=== PATIENT | female | born 1960 | race Caucasian/White ===

== ENCOUNTER 2017-05-15 10:27 | Emergency (ER) | payer MEDICARE, MEDICAID ==
[2017-05-15 10:36] VITALS: BP 153/64
--- NOTE | 2017-05-15 10:44 | UC ---
Respiratory Complaint HPI - HPI Summary HPI Summary: 56 year old female presents with complains of copd exacerbation. - History of Current Complaint Chief Complaint: UCRespiratory Stated Complaint: ST,COUGH,BREATHING Time Seen by Provider: 05/15/17 10:44 Hx Obtained From: Patient Onset/Duration: Sudden Onset Severity Initially: Moderate Severity Currently: Moderate Character: Cough: Nonproductive Alleviating Factors: Bronchodilator Associated Signs And Symptoms: Positive: Dyspnea, Wheezing - Allergies/Home Medications Allergies/Adverse Reactions: Allergies Allergy/AdvReac Type Severity Reaction Status Date / Time No Known Allergies Allergy Verified 05/15/17 10:36 Home Medications: Home Medications Albuterol HFA INHALER* [Ventolin HFA Inhaler*] 2 puff INH Q4H PRN 05/15/17 [ History Confirmed 05/15/17] Apremilast (NF) [Otezla (NF)] 30 mg PO DAILY 05/15/17 [History Confirmed ] Cilostazol TAB* [Pletal TAB*] 100 mg PO BID 05/15/17 [History Confirmed 05/15/17 ] Clopidogrel TAB* [Plavix TAB*] 75 mg PO DAILY 05/15/17 [History Confirmed ] Fluticasone-Salmeterol 500-50* [Advair Diskus 500-50*] 1 puff INH BID 05/15/17 [ History Confirmed 05/15/17] Gabapentin CAP(*) [Neurontin 100 mg CAP(*)] 200 mg PO BID 05/15/17 [History Confirmed 05/15/17] Tiotropium Gervais Monohydrate [Spiriva Respimat] 1.25 mcg IN DAILY 05/15/17 [ History Confirmed 05/15/17] oxyCODONE TAB* [Roxycodone TAB 5 mg*] 20 mg PO TID PRN 05/15/17 [History Confirmed 05/15/17] PMH/Surg Hx/FS Hx/Imm Hx Previously Healthy: Yes - Surgical History Surgical History: Yes Surgery Procedure, Year, and Place: Bypass to left leg several times. left above knee amputation. Nephroscocopy ? - Social History Alcohol Use: None Substance Use Type: Marijuana Smoking Status (MU): Heavy Every Day Tobacco Smoker Amount Used/How Often: 5 cigs per day Review of Systems Constitutional: Negative Skin: Negative Eyes: Negative ENT: Negative Respiratory: Cough Cardiovascular: Negative Gastrointestinal: Negative Genitourinary: Negative Motor: Negative Neurovascular: Negative Musculoskeletal: Negative Neurological: Negative Psychological: Negative All Other Systems Reviewed And Are Negative: Yes Physical Exam Triage Information Reviewed: Yes Vital Signs: Initial Vital Signs Temp 37.7 C 05/15/17 10:30 Pulse 121 05/15/17 10:30 Resp 26 05/15/17 10:30 BP 153/64 05/15/17 10:30 Pulse Ox 92 05/15/17 10:30 Vital Signs Reviewed: Yes Eye Exam: Normal ENT Exam: Normal Dental Exam: Normal Neck exam: Normal Neck: Positive: 1 Respiratory: Positive: Rhonchi, Wheezing Cardiovascular Exam: Normal Abdominal Exam: Normal Musculoskeletal Exam: Normal Neurological Exam: Normal Psychological Exam: Normal Skin Exam: Normal UC Diagnostic Evaluation - Laboratory O2 Sat by Pulse Oximetry: 92 Respiratory Course/Dx - Differential Dx/Diagnosis Provider Diagnoses: copd exacerbation Discharge - Discharge Plan Condition: Stable Disposition: HOME Prescriptions: Levofloxacin TAB* [Levaquin TAB*] 750 mg PO DAILY #6 tab predniSONE TAB* [Deltasone TAB*] 40 mg PO DAILY #4 tab Patient Education Materials: Emphysema (ED), COPD (Chronic Obstructive Pulmonary Disease) (ED) Referrals: Linda Greenberg MD [Primary Care Provider] -
[2017-05-15] MEDS ORDERED: predniSONE TAB* 20 MG PO ONE (10:48)
[2017-05-15] MEDS ORDERED: Levofloxacin TAB* 250 MG PO ONE (10:49)
[2017-05-15] MEDS ORDERED: Albuterol/Ipratropium NEB.SOL* Albuterol 2.5 MG/Ipratropium 0.5 MG 3 ML INH ONE (10:52)
[2017-05-15] MEDS ORDERED: Albuterol/Ipratropium NEB.SOL* Albuterol 2.5 MG/Ipratropium 0.5 MG 3 ML ONE (10:54)
== END 2017-05-15 11:18 | disposition home or self-care (01) ==
LOC: UCCORT 10:27
DX: J44.1 Chronic obstructive pulmonary disease with (acute) exacerbation (principal); F17.210 Nicotine dependence, cigarettes, uncomplicated; Z79.02 Long term (current) use of antithrombotics/antiplatelets
CPT/HCPCS: 99212; A9270-GY; G0463; J7512

== ENCOUNTER 2019-06-21 08:29 | Emergency (ER) | payer MEDICARE, MEDICAID ==
[2019-06-21] MEDS ORDERED: predniSONE TAB* 20 MG PO ONE (08:43)
[2019-06-21] MEDS ORDERED: Albuterol/Ipratropium NEB.SOL* Albuterol 2.5 MG/Ipratropium 0.5 MG 3 ML INH ONE (08:44)
--- OUTSIDE RECORDS SUMMARY | 2019-06-21 09:20 | XMS REPORT | Continuity of Care Document ---
:1960 Author Organization [facility] Address [address], [place] [id number] Phone Care Team Providers Name Role Phone Solitario Irving Unavailable Unavailable Allergies, Adverse Reactions, Alerts Substance Reaction Status No Known Allergies Active Medications Medication Instructions Dosage Effective Dates Status Comments (start - stop) sulfasalazine 500 mg take 2 tablets BID - Active tablet meloxicam 7.5 mg take 1 tablet by 7.5 MG - Active tablet oral route every day cyclobenzaprine 5 mg take 1 tablet by - Active tablet oral route 1-2 times every day Spiriva Respimat 2.5 inhale 2 puff by 5 MCG - Active mcg/actuation inhalation route solution for every day at the inhalation same time each day Advair Diskus 500 inhale 1 puff by 1.00 puff - Active mcg-50 mcg/dose inhalation route 2 powder for inhalation times every day in the morning and evening approximately 12 hours apart clopidogrel 75 mg take 1 tablet by 75 MG - Active tablet oral route every day cilostazol 100 mg take 1 tablet by 100 MG - Active tablet oral route 2 times every day 1/2 hour before or 2 hours after breakfast and dinner Aspir-81 81 mg take 1 tablet by 81 MG - Active tablet,delayed oral route every release day Otezla 30 mg tablet take 1 tablet by 30 MG - Active oral route 2 times every day approximately 12 hours apart vitamin E 400 unit - Active capsule Super B-50 Complex - Active capsule Vitamin D3 5,000 unit - Active tablet oxycodone 20 mg take 1 tablet by - Active tablet oral route 3 times daily Humira(CF) Pen 40 inject 0.4 40 MG - No Longer mg/0.4 mL milliliter by Active subcutaneous kit subcutaneous route every 2 weeks in the abdomen or thigh (rotate sites) sulfasalazine 500 mg take 2 tablets BID - No Longer tablet Active gabapentin 300 mg take 2 capsule by 600 MG - No Longer capsule oral route 2 times Active every day Tylenol Arthritis take 2 tablet by 1300 MG - No Longer Pain 650 mg oral route every 8 Active tablet,extended hours as needed release swallowing whole with water. Do not break, crush, dissolve and/or chew. 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 Pain in unspecified joint Arthropathic psoriasis, unspecified Psoriasis, unspecified Other buttermaker helper drug therapy Pain in joint Arthropathic psoriasis, unspecified Psoriasis Psoriasis Arthropathic psoriasis, unspecified Anemia Active Blood Clots Active Kidney Stones Active Pneumonia Active Psoriasis Active Rheumatoid Arthritis Active Procedures Procedure Date No information Results Test Name Date and Time Measure Units Reference Range Abnormal Flag Status Comments No information Advance Directives Directive Yes / No Effective Date File Name No information Encounters Encounter Practice Location Reason(s) Diagnoses Date Provider Providers Description For Visit Copied on Encounter Arthritis Arthritis Arthropathic [facility] psoriasis, 2 [facility] Provider: Carmella Weir unspecifiedOth 9 [facility], [address] [facility] er correction [address] [facility] (current) drug [place] [id number] [facility], therapy[address], [place], unspecified [place], [address], [place], [place], [place], [place], [id number], [id number], [id number]. [place]. tel:[phone] tel:[phone] tel:[phone] [phone] [facility] Provider: Eulalia Sandoval MD, [address], [place], [address]. tel:[phone] [facility]thritis [facility] 8- MD Ros[facility]. Carmella Weir 9 [address] [facility], [address], [place], [place], [place], [place], [id number], [id number], [place]. [place] tel:[phone] tel:[phone] Arthritis Arthritis Arthropathic Aug-0 [facility] psoriasis, 1-201 [facility] Provider: Carmella Goldeno 9 [facility], [address] [facility] riasis, [address] [facility], [facility] un[facility] [facility] [address] [facility], [address], [place], drug [place], [address], [place], therapy[place] in [place], [place], [place], [id number], joint [id number], [id number]. [place]. tel:[phone] tel:[phone] tel:[phone] [phone] ring Provider: Eulalia Sandoval MD, [address], [place], [address]. tel:[phone] Arthritis Arthritis [facility] 6-201 MD Rosales. Carmella Weir 9 [address] [facility], [address], [place], [place], [place], [place], [place], [id number], [id number], [place]. [place] tel:[phone] tel:[phone] Arthritis Arthritis Arthropathic May-2 [facility] psoriasis, 0-201 MD Rosales. Provider: Carmella Weir unspecifiedPso 9 [address] [facility], [address] [facility] riasis [facility] [address], [address] [facility], [place], [place], [place], [address], [place], [id number], [place], [place], [id number], [place]. [address]. [place] tel:[phone] tel:[phone] tel:[phone] ring Provider: Eulalia Sandoval MD, [address], [place], [address]. tel:[phone] Arthritis Arthritis PsoriasisArthr Lindy [facility] 1-201 MD Rosales. Provider: Carmella Weir psoriasis, 9 [address] [facility], [address] [facility] unspecified Eliel Nur PA, [address], [address] [facility], [place], [place], [place], [address], [place], [id number], [place], [place], [id number], [place]. [address]. [place] tel:[phone] tel:[phone] tel:[phone] ring Provider: Eulalia Sandoval MD, [address], [place], [address]. tel:[phone] Family History Family Member Diagnosis Age At Onset Father Cancer, pancreas Sister Psoriatic Arthritis Mother Psoriasis Immunizations Vaccine Date Status Comments Influenza, injectable, MDCK, administered Note: approx ; Source : Other Flucelvax Quad 2017-2018Y Provider Payers Payer name Insurance type Covered democrat ID Authorization(s) Medicare [id number] Medicaid MC [id number] Social History Type Description Quantity Date Captured Comments Alcohol Use Details Unknown Caffeine Use Details Unknown Tobacco Use Status Smoking Status Unknown Sex Female Vital Signs Date / Height Weight BMI Pulse Blood Temperature Respiratory Body Head BMI Pulse Inhaled Time: Rate Pressure Rate Surface Circumference percentile Ox Ox Area No information Chief Complaint And Reason For Visit No information Reason For Referral Reason For Referral No information Plan Of Treatment Date Type Action Status Goal Tobacco cessation counseling completed Goal Tobacco cessation counseling completed Goal Tobacco cessation counseling completed Goal Tobacco cessation counseling completed Referral Ordered: ordered HAND X-RAY, 3 VIEWS Right Referral Ordered: ordered HAND X-RAY, 3 VIEWS Left Appointment Noy Farfan BOOKED History Of Present Illness Encounter Date Complaint History Of Present Illness No information Functional Status Date Functional Assessment No information Medications Administered Medication Instructions Dosage Effective Dates (start - stop) Status Comments No information Instructions Date Instruction Additional Information Risks/benefits of medications reviewed Labs ordered to check disease activity. Call if symptoms return Labs ordered to check blood counts, liver and kidney functions to monitor safety of medication. Discussed / Reviewed Labs continue same medication plan call if symptoms worsen Risks/benefits of medications reviewed Risks/benefits of medications discussed, handout given on Humira Call if symptoms return Discussed / Reviewed Labs continue same medication plan call if symptoms worsen
--- OUTSIDE RECORDS SUMMARY | 2019-06-21 09:20 | XMS REPORT | Continuity of Care Document ---
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 Problems Description No Information Available Social History Type Date Description Comments Sex Unknown Cigarette Use Current Cigarette Smoker 1/2 Pack Daily ETOH Use Denies alcohol use Tobacco Use Start: Unknown Patient is a current smoker, smokes every day Smoking Status Reviewed: 05/10/19 Patient is a current smoker, smokes every day Allergies, Adverse Reactions, Alerts Active Allergies Reaction Severity Comments Date Fentanyl 08/26/2015 Tramadol 08/26/2015 Inactive Allergies NKDA 08/11/2014 Medications Active Medications SIG Qnty Indications Ordering Date Provider Laurie si by mouth 30tabs Nicho Ram, 06/27/2017 7.5mg Tablets every day as DO, MPH directed Oxycodone HCL si by mouth 90tabs Nicho Ram, 04/11/2017 20mg every 8 hours as DO, MPH Tablets directed chronic pain patient dx g89.28 and m54.6 Plavix 1 po daily Unknown 75mg Tablets Advair Diskus 2 puffs daily Unknown 500-50mcg/Dose Aerosol Proair HFA si-2 puffs a 1inhaler Unknown 108(90Base) needed mcg/Act Aerosol Otezla daily Unknown 30mg Tablets Super B-Complex Unknown Capsules Vitamin D-3 Unknown 1000Unit Capsules Cilostazol Unknown 100mg Tablets Sulfasalazine Unknown 500mg Tablets Spiriva Handihaler Unknown 18mcg Capsules Immunizations Description No Information Available Vital Signs Date Vital Result Comment 05/10/2019 10:38am BP Systolic 128 mmHg BP Diastolic 74 mmHg Heart Rate 78 /min Respiratory Rate 20 /min Height 67 inches 5'7" Weight 117.00 lb Pain Level 8 Pain at this time. Pain Level With Medicine 7 on average with meds Pain Level Without Medicine 9 without meds BMI (Body Mass Index) 18.3 kg/m2 04/08/2019 10:41am BP Systolic 128 mmHg BP Diastolic 74 mmHg Heart Rate 70 /min Respiratory Rate 20 /min Height 67 inches 5'7" Weight 117.00 lb Pain Level 8 Pain at this time. 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 Office Visit 03/07/2019 9:15a Main Office Nicho Ram G89.28 Other chronic as Of 07/27/13 DO, MPH postprocedural pain G54.6 Phantom limb syndrome with pain M05.9 Rheumatoid arthritis with rheumatoid factor, unspecified M25.552 Pain in left hip M79.605 Pain in left leg 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 Office Visit 02/04/2019 4:15p Main Office Nicho Ram G89.28 Other chronic as Of 07/27/13 DO, MPH postprocedural pain M79.605 Pain in left leg M25.552 Pain in left hip G54.6 Phantom limb syndrome with pain M05.9 Rheumatoid arthritis with rheumatoid factor, unspecified 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 Office Visit 01/02/2019 9:30a Main Office Ram, Nicho, G89.28 Other chronic as Of 07/27/13 DO, MPH postprocedural pain G54.6 Phantom limb syndrome with pain M25.552 Pain in left hip M79.605 Pain in left leg J45.998 Other asthma M05.9 Rheumatoid arthritis with rheumatoid factor, unspecified Z79.891 snf (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 Office Visit 12/03/2018 10:30a Main Office Ram, Nicho, G89.28 Other chronic as Of 07/27/13 DO, MPH postprocedural pain M79.605 Pain in left leg M25.552 Pain in left hip G54.6 Phantom limb syndrome with pain 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 Assessments Date Code Description Provider 05/10/2019 G89.28 Other chronic postprocedural pain Ram, Nicho, DO, MPH 05/10/2019 M79.605 Pain in left leg Ram, Nicho, DO, MPH 05/10/2019 M25.552 Pain in left hip Ram, Nicho, DO, MPH 05/10/2019 G54.6 Phantom limb syndrome with pain Ram, Nicho, DO, MPH 05/10/2019 M05.9 Rheumatoid arthritis with rheumatoid factor, Ram, Nicho, DO, MPH unspecified 05/10/2019 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 Ram, Nicho , DO, MPH 04/08/2019 G89.28 Other chronic postprocedural pain Ram, Nicho, DO, MPH 04/08/2019 G54.6 Phantom limb syndrome with pain Ram, Nicho, DO, MPH 04/08/2019 M05.9 Rheumatoid arthritis with rheumatoid factor, Ram, Nicho, DO, MPH unspecified 04/08/2019 M79.605 Pain in left leg Ram, Nicho, DO, MPH 04/08/2019 M25.552 Pain in left hip Ram, Nicho, DO, MPH 04/08/2019 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 Ram, Nicho , DO, MPH 03/07/2019 G89.28 Other chronic postprocedural pain Ram, Nicho, DO, MPH 03/07/2019 G54.6 Phantom limb syndrome with pain Ram, Nicho, DO, MPH 03/07/2019 M05.9 Rheumatoid arthritis with rheumatoid factor, Ram, Nicho, DO, MPH unspecified 03/07/2019 M25.552 Pain in left hip Ram, Nicho, DO, MPH 03/07/2019 M79.605 Pain in left leg Ram, Nicho, DO, MPH 03/07/2019 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 Ram, Nicho , DO, MPH 02/04/2019 G89.28 Other chronic postprocedural pain Ram, Nicho, DO, MPH 02/04/2019 M79.605 Pain in left leg Ram, Nicho, DO, MPH 02/04/2019 M25.552 Pain in left hip Ram, Nicho, DO, MPH 02/04/2019 G54.6 Phantom limb syndrome with pain Ram, Nicho, DO, MPH 02/04/2019 M05.9 Rheumatoid arthritis with rheumatoid factor, Ram, Nicho, DO, MPH unspecified 02/04/2019 Z79.891 snf (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 Ram, Nicho , DO, MPH 01/02/2019 G89.28 Other chronic postprocedural pain Ram, Nicho, DO, MPH 01/02/2019 G54.6 Phantom limb syndrome with pain Ram, Nicho, DO, MPH 01/02/2019 M25.552 Pain in left hip Ram, Nicho, DO, MPH 01/02/2019 M79.605 Pain in left leg Ram, Nicho, DO, MPH 01/02/2019 J45.998 Other asthma Ram, Nicho, DO, MPH 01/02/2019 M05.9 Rheumatoid arthritis with rheumatoid factor, Ram, Nicho, DO, MPH unspecified 01/02/2019 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 Symptoms and complaints discussed and reviewed today. No significant changes in physical findings. Continue current medical pain management.M79.605 Pain in left legComments:Chronic. Symptoms and complaints discussed and reviewed today. No significant changes in physical findings. Continue current medical pain management.M25.552 Pain in left hipComments:Chronic. Symptoms and complaints discussed and reviewed today. No significant changes in physical findings. Continue current medical pain management.G54.6 Phantom limb syndrome with painComments:Chronic. Symptoms and complaints discussed and reviewed today. No significant changes in physical findings. Continue current opioid pain management.M05.9 Rheumatoid arthritis with rheumatoid factor, unspecifiedComments:Chronic. Symptoms and complaints discussed and reviewed today. No significant changes in physical findings. Continue current medical pain management. Followed by Rheumatology. Will follow in regards to pain management.Z79.891 snf (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New Labs:Urine Drug Screen, Ordered: 05/10/19Comments:Urine drug screen sample taken today to monitor opiate use and to monitor use of illicit substances.Will discuss results at next appointment.The following tests were ordered:6 AM, AMPH, NIDA, YARELI, BUP, CARIS, COCM, ETG, FENT, MCSHSG, OPI, OXY, PCP, TAPEN, XTSY, ZOLP. A urine drug test (UDT) was ordered for this patient and collected on site today. Creatinine has been ordered as well for specimen validity, not for kidney function. Preliminary UDT results are not final and should not be used to determine patient care or plan of treatment. Initially a qualitative immunoassay screen will bedone. Any inconsistent or positive findings will be further tested with a more comprehensive quantitative confirmation LCMS study. It is part of the treatment process of prescribing controlled substances and is considered standard of care.AllComments:Continue current medical pain management; injection therapy, osteopathic manipulation, PT / modalities, and consults as needed to manage chronic pain.Non - opioid pain management discussed and optionsdiscussed.Side effects discussed; anticipatory guidance given. Patient clearly understand and agree with all medical treatments and suggestions. All medicines prescribed are adequate and appropriate for this patient's complaint of pain, medical history, physical, and personal goals.Goals of Treatment are to provide adequate and appropriate multidisciplinary medical pain management to increase/ maintain patient's quality of life and functionality while maintaining satisfactory side effect profile andminimizing assistant terminal manager end-organ damage. Importance of regular nutrition throughout the day discussed.Activity as toleratedContinue with PCP Functional Status Description No Information Available Mental Status Description No Information Available Referrals Description No Information Available
--- OUTSIDE RECORDS SUMMARY | 2019-06-21 09:20 | XMS REPORT | Continuity of Care Document ---
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 Pain in joint Arthropathic psoriasis, unspecified Psoriasis Psoriasis Arthropathic psoriasis, unspecified Anemia Active Blood Clots Active Kidney Stones Active Pneumonia Active Psoriasis Active Rheumatoid Arthritis Active Procedures Procedure Date ROUTINE VENIPUNCTURE COMPLETE CBC W/AUTO DIFF WBC RBC SED RATE, AUTOMATED C-REACTIVE PROTEIN ASSAY OF CREATININE TRANSFERASE (AST) (SGOT) ALANINE AMINO (ALT) (SGPT) ASSAY OF SERUM ALBUMIN OFFICE/OUTPATIENT VISIT, EST THER/PROPH/DIAG INJ, SC/IM Methylprednisolone 80 MG inj Results Test Name Date and Time Measure Units Reference Range Abnormal Flag Status Comments Panel Description: CBC Final WBC 16:08:00 10.1 10*3/uL 3.7-10.1 Final RBC 16:08:00 4.72 10*6/uL 3.50-5.50 Final HGB 16:08:00 15.4 g/dL 12.0-16.0 Final HCT 16:08:00 47.0 % 36.0-48.0 Final MCV 16:08:00 99.6 fL 80.0-100.0 Final MCH 16:08:00 32.7 pg 26.0-34.0 Final MCHC 16:08:00 32.8 g/dL 31.0-37.0 Final RDW 16:08:00 13.4 % 10.0-15.0 Final PLATELETS 16:08:00 467 10*3/uL 150-500 Final MPV 16:08:00 5.5 fL 6.0-10.0 L Final IBAN# 16:08:00 6.92 10*3/uL 2.10-8.00 Final LYM# 16:08:00 1.79 10*3/uL 1.00-5.00 Final MONO# 16:08:00 0.94 10*3/uL 0.10-1.00 Final EOS# 16:08:00 0.4 10*3/uL 0.0-0.5 Final BASO# 16:08:00 0.1 10*3/uL 0.0-0.2 Final IBAN% 16:08:00 68.3 % 50.0-80.0 Final LYM% 16:08:00 17.7 % 25.0-50.0 L Final MONO% 16:08:00 9.2 % 2.0-10.0 Final EOS% 16:08:00 3.5 % 0.0-5.0 Final BASO% 16:08:00 1.3 % 0.0-4.0 Final Panel Description: ESR Final ESR 16:08:00 4 mm/Hr 0-20 Final Panel Description: ALBUMIN Final ALB 16:08:00 3.8 g/dL 3.4-4.4 Final Panel Description: ALT Final ALT 16:08:00 25 U/L 30-65 L Final Panel Description: AST Final AST 16:08:00 25 U/L 15-37 Final Panel Description: CREATININE Final CREATININE 16:08:00 0.9 mg/dL 0.6-1.2 Final eGFR 16:08:00 >60 mL/min/1.73m Final Panel Description: CRP Final CRP 16:08:00 <0.2 mg/dL 0.0-1.0 Final Advance Directives Directive Yes / No Effective Date File Name No information Encounters Encounter Practice Location Reason(s) Diagnoses Date Provider Providers Description For Visit Copied on Encounter OFFICE/OUTPA Arthritis Arthritis Psoriatic [facility]ropathic [facility] psoriasis, RIP TAILER C Provider: ELLI Weir (chief unspecifiedOth [address] [facility], 5[address] PLLC complaint) er retirement [address] El[address] Andrew (current) drug [place] [address] [facility], therapyPain in [address]kw[address], [place], [place], [address], [place], [place], [place], [place], [id number], [id number], [address]. [place]. tel:[phone] tel:[phone] tel:[phone] [phone] [phone] ring Provider: Eulalia Sandoval MD, [address], [place], [address]. tel:[phone] Arthritis Arthritis Arthropathic [facility] psoriasis, RIP TAILER C Provider: Carmella Weir unspecifiedPso [address] 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 [place]. tel:[phone] tel:[phone] tel:[phone] [phone] ring Provider: Eulalia Sandoval MD, [address], [place], [address]. tel:[phone] Arthritis Arthritis [facility] MD [facility] 9 5[address] PLLC, 5794 PLLC [facility], [facility], [place], [place], [place], [id number], [id number], [place]. [place] tel:[phone] tel:[phone] Arthritis Arthritis Arthropathic October- [employer] [facility] psoriasis, 0-201 MD Rosales. Provider: Carmella Weir unspecifiedPso 9 5794 [facility], 5[address] PLLC riasis [facility], [facility], [address] [facility], [place], [facility], [place], [address], [place], [id number], [place], [place], [id number], [place]. [address]. [place] tel:[phone] tel:[phone] tel:[phone] [id number] ring Provider: Eulalia Sandoval MD, [address], [place], [address]. tel:[phone] Arthritis Arthritis PsoriasisArthr [employer] [facility] 1-201 MD Rosales. Provider: Carmella Weir psoriasis, 9 5[address] [facility], 5[address] PLLC unspecified [facility], [facility], [address] [facility], [place], [facility], [place], [address], [place], [id number], [place], [id number], [place]. [address]. [place] tel:[phone] tel:[phone] tel:[phone] [phone] ring Provider: Eulalia Sandoval MD, [address], [place], [address]. tel:[phone] Family History Family Member Diagnosis Age At Onset Father Cancer, pancreas Sister Psoriatic Arthritis Mother Psoriasis Immunizations Vaccine Date Status Comments Influenza, injectable, MDCK, administered Note: approx ; Source : Other Flucelvax Quad 2017-2018Y Provider Payers Payer name Insurance type Covered libertarian ID Authorization(s) Medicare [id number] Medicaid MC [id number] Social History Type Description Quantity Date Captured Comments Alcohol Use Details No Caffeine Use Details Tobacco Use Status Cigarette smoker Smoking Status Current every day smoker Non-Smoking Tobacco : No Details Available : No Details Available 2018 Use Details Sex Female Vital Signs Date / Height Weight BMI Pulse Blood Temperature Respiratory Body Head BMI Pulse Inhaled Time: Rate Pressure Rate Surface Circumference percentile Ox Ox Area 65.50 103.00 16.8 in lbs 8 mm[Hg] 3:55 kg/m PM eter (2) Chief Complaint And Reason For Visit Most recent encounter only, dated '05/17/2019 16:00'. Psoriatic Arthritis (chief complaint). Description: The pain severity is 10/10. Patient is experiencing generalized morning stiffness for 30 Minutes, fatigue, numbness/ tingling on the legs and back pain. Patient denies having rash, abdominal pain , hair loss, diarrhea, infection, fever, headache, weight loss, pleuritic pain and shortness of breath. Reason For Referral Reason For Referral No [...] Encounter Date Complaint History Of Present Illness Psoriatic Arthritis The pain severity is 10/10. Patient is experiencing generalized morning stiffness for 30 Minutes, fatigue, numbness/tingling on the legs and back pain. Patient denies having rash, abdominal pain, hair loss, diarrhea, infection, fever, headache, weight loss, pleuritic pain and shortness of breath. Functional Status Date Functional Assessment No information [...]
--- OUTSIDE RECORDS SUMMARY | 2019-06-21 09:20 | XMS REPORT | Continuity of Care Document ---
:1960 Author Organization 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 [facility], 5794 PLL er terminal operations supervisor [address] [place] [facility] (current) drug [facility] [address] [facility], therapyPain in [address]kw[address], [place], unspecified [place], [address], [place], [place], [place], [place], [id number], [id number], [address]. [place]. tel:[phone] tel:[phone] [id number] ring Provider: Eulalia Sandoval MD, [address] [place] [address] [address], [place], [address]. tel:[phone] Arthritis Arthritis Oct-0 [facility] 8-201 MD [facility] 9 5794 PLLC, [address] [facility] [address], [facility], [place], [place], [place], [id number], [id number], [place]. [place] tel:[phone] tel:[phone] Arthritis Arthritis Arthropathic Aug-0 [facility] psoriasis, [address] [employer] C Provider: Carmella Weir unspecifiedPso 9 [facility], 5794 PLLC riasis, [address] [facility] [place], [facility] unspecifiedOth [facility] [address] [facility], er [address], [place], drug [place], [address], [place], therapyPain in [place], [place], [place], [id number], joint [id number], [address]. [place]. tel:[phone] tel:[phone] tel:[phone] [phone] [facility] Provider: Eulalia Sandoval MD, [facility] [address], [place], [address]. tel:[phone] Arthritis Arthritis [facility] 6-201 MD [facility] 9 5794 PLLC, [address] [facility] [address], [place], [place], [place], [place], [place], [id number], [id number], [place]. [place] tel:[phone] tel:[phone] Arthritis Arthritis Arthropathic October-2 [facility] psoriasis, 0-201 MD Rosales. Provider: Carmella Weir unspecifiedPso 9 [address]794 [facility], [address] [facility] [address], [address] [facility], [place], [place], [place], [address], [place], [id number], [place], [place], [id number], [place]. [address]. [place] tel:[phone] tel:[phone] tel:[phone] [phone] ring Provider: Eulalia Sandoval MD, [address], [place], [address]. tel:[phone] Arthritis Arthritis PsoriasisArthr [facility] 1- MD Rosales. Provider: Carmella Weir psoriasis, 9 5794 [facility], 5794 PLLC unspecified [facility] [place], [facility] [address], [address] [facility], [place], [place], [address] [place] [address], [place], [id number], [place], [place], [id number], [place]. [address]. [place] tel:[phone] tel:[phone] tel:[phone] [phone] ring Provider: Eulalia Sandoval MD, [address], [place], [address]. tel:[phone] Family History Family Member Diagnosis Age At Onset Father Cancer, pancreas Sister Psoriatic Arthritis Mother Psoriasis Immunizations Vaccine Date Status Comments Influenza, injectable, MDCK, administered Note: approx ; Source : Other Flucelvax Quad 2017-2018Y Provider Payers Payer name Insurance type Covered green party ID Authorization(s) Medicare [id number] Medicaid [id number] Social History Type Description Quantity Date Captured [...] X-RAY, 3 VIEWS Left Appointment Noy Farfan BOOKAIDA History Of Present Illness Encounter Date Complaint [...]
--- OUTSIDE RECORDS SUMMARY | 2019-06-21 09:20 | XMS REPORT | Continuity of Care Document ---
:1960 External Reference #:[id number] Author Name Nicho Ram DO, MPH Address [address] [place] [address], [address] [place] [address] Care Team Providers Name Role Phone Jeanette Ozuna MD - Internal Medicine Care Team Information Telesales Advisor [phone] Problems Description No Information Available Social History Type Date Description Comments Sex Unknown Cigarette Use Current Cigarette Smoker 1/2 Pack Daily ETOH Use Denies alcohol use Tobacco Use Start: Unknown Patient is a current smoker, smokes every day Smoking Status Reviewed: 06/10/19 Patient is a current smoker, smokes every [...] Available Vital Signs Date Vital Result Comment 06/10/2019 10:43am BP Systolic 112 mmHg BP Diastolic 74 mmHg Heart Rate 76 /min Respiratory Rate 20 /min Height 67 inches 5'7" Weight 108.00 lb Pain Level 8 Pain at this time. 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 Office Visit 04/08/2019 11:00a Main Office Nicho Ram G89.28 Other chronic as Of 07/27/13 DO, MPH postprocedural pain G54.6 Phantom limb syndrome with pain M05.9 Rheumatoid arthritis with rheumatoid factor, unspecified M79.605 Pain in left leg M25.552 Pain in left hip 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 Office Visit 03/07/2019 9:15a Main Office Nicho Ram G89.28 Other chronic as Of 07/27/13 DO, MPH postprocedural pain G54.6 Phantom limb syndrome with pain M05.9 Rheumatoid arthritis with rheumatoid factor, unspecified M25.552 Pain in left hip M79.605 Pain in left leg 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 Office Visit 02/04/2019 4:15p Main Office Ram, Nicho, G89.28 Other chronic as Of 07/27/13 DO, MPH postprocedural pain M79.605 Pain in left leg M25.552 Pain in left hip G54.6 Phantom limb syndrome with pain M05.9 Rheumatoid arthritis with rheumatoid factor, unspecified 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 Office Visit 01/02/2019 9:30a Main Office Ram, Nicho, G89.28 Other chronic as Of 07/27/13 DO, MPH postprocedural pain G54.6 Phantom limb syndrome with pain M25.552 Pain in left hip M79.605 Pain in left leg J45.998 Other asthma M05.9 Rheumatoid arthritis with rheumatoid factor, unspecified 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 Assessments Date Code Description Provider 06/10/2019 G89.28 Other chronic postprocedural pain Ram, Nicho, DO, MPH 06/10/2019 G54.6 Phantom limb syndrome with pain Ram, Nicho, DO, MPH 06/10/2019 M25.552 Pain in left hip Ram, Nicho, DO, MPH 06/10/2019 M79.605 Pain in left leg Ram, Nicho, DO, MPH 06/10/2019 M05.9 Rheumatoid arthritis with rheumatoid factor, Ram, Nicho, DO, MPH unspecified 06/10/2019 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28 Other chronic postprocedural pain Ram, Nicho, DO, MPH 03/07/2019 G54.6 Phantom limb syndrome with pain Ram, Nihco, DO, MPH 03/07/2019 M05.9 Rheumatoid arthritis with rheumatoid factor, Ram, Nicho, DO, MPH unspecified 03/07/2019 M25.552 Pain in left hip Ram, Nicho, DO, MPH 03/07/2019 M79.605 Pain in left leg Ram, Nicho, DO, MPH 03/07/2019 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 Ram, Nicho [...] Ram, Nicho, DO, MPH unspecified 02/04/2019 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 Ram, Nicho , DO, MPH 01/02/2019 G89.28 Other chronic postprocedural pain Ram, Nicho, DO, MPH 01/02/2019 G54.6 Phantom limb syndrome with pain Rma, Nicho, DO, MPH 01/02/2019 M25.552 Pain in left hip Nicho Ram DO MPH 01/02/2019 M79.605 Pain in left leg Nicho Ram DO MPH 01/02/2019 J45.998 Other asthma Nicho Ram DO MPH 01/02/2019 M05.9 Rheumatoid arthritis with rheumatoid factor, Nicho Ram DO MPH unspecified 01/02/2019 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 Symptoms and complaints discussed and reviewed today. No significant changes in physical findings. Continue current medical pain management.G54.6 Phantom limb syndrome with painComments:Chronic. Symptoms and complaints discussed and reviewed today. No significant changes in physical findings. Continue current opioid pain management.M25.552 Pain in left hipComments:Chronic. Symptoms and complaints discussed and reviewed today. No significant changes in physical findings. Continue current medical pain management.M79.605 Pain in left legComments:Chronic. Symptoms and complaints discussed and reviewed today. No significant changes in physical findings. Continue current medical pain management.M05.9 Rheumatoid arthritis with rheumatoid factor, unspecifiedComments:Chronic. Symptoms and complaints discussed and reviewed today. No significant changes in physical findings. Continue current medical pain management. Followed by Rheumatology. Will follow in regards to pain management.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New Labs:Urine Drug Screen, Ordered: 06/10/19Comments:Urine drug screen sample taken today to monitor [...] while maintaining satisfactory side effect profile andminimizing terminal carman end-organ damage. Importance of regular nutrition throughout the day discussed.Activity as toleratedContinue with PCP Functional Status Description No Information Available Mental Status Description No Information Available Referrals Description No Information Available
--- OUTSIDE RECORDS SUMMARY | 2019-06-21 09:20 | XMS REPORT | Continuity of Care Document ---
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 [facility], 5794 PLL er termite exterminator helper [address] [place] [facility] (current) drug [facility] [address] [facility], therapyPain in [address], [place], unspecified [place], [address], [place], [place], [place], [place], [id number], [id number], [address]. [place]. tel:[phone] [phone] tel:[phone] [id number] ring Provider: Eulalia Sandoval MD, [address] [place] [address] [address], [place], [address]. tel:[phone] Arthritis Arthritis Nov-0 [facility] 8-201 MD [facility] 9 5794 PLLC, [address] [facility] [address], [facility], [place], [place], [place], [id number], [id number], [place]. [place] tel:[phone] tel:[phone] Arthritis Arthritis Arthropathic Aug-0 [facility] psoriasis, 1201 MEDICAL PHYSICS RESEARCHER C Provider: Carmella Weir unspecifiedPso 9 [facility], 5794 PLLC riasis, [address] [facility] [place], [facility] unspecifiedOth [facility] [address] [facility], [address], [place], drug [place], [address] , [place], therapy[place] in [place], [place], [place], [id number], joint [id number], [address]. [place]. tel:[phone] tel:[phone] tel:[phone] [phone] [facility] Provider: Eulalia Sandoval MD, [facility] [address], [place], [address]. tel:[phone] Arthritis Arthritis Dec- [facility] 6-201 MD [facility] 9 5794 PLLC, [address] [facility] [address], [place], [place], [place], [place], [id number], [id number], [place]. [place] tel:[phone] tel:[phone] Arthritis Arthritis Arthropathic October-2 [facility] psoriasis, 0-201 MD Rosales. Provider: Carmella Weir unspecifiedPso 9 5794 [facility], 5794 PLLC riasis [facility] [address], [address] [facility], [place], [place], [place], [address], [place], [id number], [place], [place], [id number], [place]. [address]. [place] tel:[phone] tel:[phone] tel:[phone] [id number] ring Provider: Eulalia Sandoval MD, [address], [place], [address]. tel:[phone] Arthritis Arthritis PsoriasisArthr [facility] 1- MD Rosales. Provider: Carmella Weir psoriasis, 9 5794 [facility], 5794 PLLC unspecified [facility] [place], [facility] [address], [address] [facility], [place], [place], [address] [place] [address], [place], [id number], [place], [place], [id number], [place]. [address]. [place] tel:[phone] tel:[phone] tel:[phone] [phone] ring Provider: Eulalia Sandoval MD, [address], [place], [address]. tel:[phone] Family History Family Member Diagnosis Age At Onset Father Cancer, pancreas Sister Psoriatic Arthritis Mother Psoriasis Immunizations Vaccine Date Status Comments Influenza, injectable, MDCK, administered Note: approx ; Source : Other Flucelvax Quad 2017-2018Y Provider Payers Payer name Insurance type Covered libertarian ID Authorization(s) Medicare [id number] Medicaid [id number] Social History Type Description Quantity Date Captured Comments Sex Female Vital Signs Date / Height [...] No information Instructions Date Instruction Additional Information call if symptoms worsen continue same medication plan Discussed / Reviewed Labs Labs ordered to check blood counts, liver and kidney functions to monitor safety of medication. Call if symptoms return Labs ordered to check disease activity. Risks/benefits of medications reviewed Call if symptoms return Discussed / Reviewed Labs continue same medication plan call if symptoms worsen Risks/benefits of medications discussed, handout given on Humira Risks/benefits of medications reviewed
--- OUTSIDE RECORDS SUMMARY | 2019-06-21 09:20 | XMS REPORT | Continuity of Care Document ---
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 [place]. tel:[phone] tel:[phone] [phone] ring Provider: Eulalia Sandoval MD, [address] [place] [address] [address], [place], [address]. tel:[phone] Arthritis Arthritis 0 [facility] 4-201 ARABIC LINGUIST C Associates Carmella 9 [facility], [address] PLLC [address] [facility], [address], [place], [place], [id number], [id number], [place]. tel: tel:[phone] Arthritis Arthritis Arthropathic 0 [facility] psoriasis, 1 ARABIC LINGUIST C Provider: Carmella Weir unspecifiedPso 9 [facility]. 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 [place]. tel:[phone] tel:[phone] tel: [phone] [facility] Provider: Eulalia Sandoval MD, [facility] [address], [place], [address]. tel:[phone] Arthritis Arthritis [facility] 6-201 MD [facility]. Associates Carmella 9 [address] PLLC, [address] PLL[address] [facility] [address], [place], [place], [place], [place], [id number], [id number], [place]. [place] tel:+ tel:[phone] Arthritis Arthritis Arthropathic October- [facility] psoriasis, 0-201 MD Rosales. Provider: Carmella Weir unspecifiedPso 9 [address] [facility], 5[address] PLLC riasis [facility], [facility] [address], [address] [facility], [place], [place], [place], [address], [place], [id number], [place], [place], [id number], [place]. [address]. [place] tel:[phone] tel:[phone] tel:[phone] [phone] ring Provider: Eulalia Sandoval MD, [address], [place], [address]. tel:[phone] [facility]thritis [facility] 1 MD Rosales. Provider: Carmella Weir psoriasis, [address] [facility], 5[address] PLLC unspecified [facility] [place], [facility] [address], [address] [facility], [place], [place], [address] [place] [address], [place], [id number], [place], [place], [id number], [place]. [address]. [place] tel:[phone] tel:[phone] tel:[phone] ring Provider: Eulalia Sandoval MD, [address], [place], [address]. tel:[phone] Family History Family Member Diagnosis Age At Onset Father Cancer, pancreas Sister Psoriatic Arthritis Mother Psoriasis Immunizations Vaccine Date Status Comments Influenza, injectable, MDCK, administered Note: approx ; Source : Other Flucelvax Quad 2017-2018Y Provider Payers Payer name Insurance type Covered democrat ID Authorization(s) Medicare [id number] Medicaid [id number] Social History Type Description Quantity Date Captured [...]
--- NOTE | 2019-06-21 09:44 | UC ---
Respiratory Complaint HPI - HPI Summary HPI Summary: 58-year-old woman comes in with a chief complaint of shortness of breath. Patient has COPD. She is not on oxygen at home. Started with upper respiratory tract infection symptoms about one week ago. Overnight became more difficult to breathe. This morning patient was using her inhaler and nebulizer without any relief and came here to clinic. No fevers measured at home but patient reports chills. She reports some chest congestion. Also has had some rhinorrhea. - History of Current Complaint Chief Complaint: UCRespiratory Stated Complaint: CONGESTION Time Seen by Provider: 06/21/19 08:43 Pain Intensity: 4 - Allergies/Home Medications Allergies/Adverse Reactions: Allergies Allergy/AdvReac Type Severity Reaction Status Date / Time No Known Allergies Allergy Verified 04/19/18 13:45 Home Medications: Home Medications sulfaSALAzine TAB* [Azulfidine TAB*] 1,000 mg PO BID 06/21/19 [History Confirmed 06/21/19] PMH/Surg Hx/FS Hx/Imm Hx Previously Healthy: Yes - SLEEP APNEA Respiratory History: COPD - Surgical History Surgical History: Yes Surgery Procedure, Year, and Place: Bypass to left leg several times. left above knee amputation. Nephroscocopy ? - Family History Known Family History: Positive: Hypertension - Social History Alcohol Use: None Substance Use Type: Marijuana, Prescribed Substance Use Comment - Amount & Last Used: marijuana q 2-3 days Smoking Status (MU): Heavy Every Day Tobacco Smoker Type: Cigarettes Amount Used/How Often: ~1/2 PPD Length of Time of Smoking/Using Tobacco: Since Age 14 Household Exposure Type: Cigarettes Review of Systems All Other Systems Reviewed And Are Negative: Yes Constitutional: Positive: Other - SEE HPI Skin: Positive: Negative Eyes: Positive: Negative ENT: Positive: Nasal Discharge Respiratory: Positive: Shortness Of Breath, Cough, Other - SEE HPI Cardiovascular: Positive: Negative Gastrointestinal: Positive: Negative Motor: Positive: Negative Neurovascular: Positive: Negative Musculoskeletal: Positive: Negative Neurological: Positive: Negative Psychological: Positive: Negative Is Patient Immunocompromised?: No Physical Exam Triage Information Reviewed: Yes Appearance: No Pain Distress, Well-Nourished, Ill-Appearing - mild respiratory distress with initial O2 Sat 89% RA Vital Signs: Initial Vital Signs Temp 98.5 F 06/21/19 08:40 Pulse 127 06/21/19 08:40 Resp 28 06/21/19 08:40 BP 174/85 06/21/19 08:40 Pulse Ox 92 06/21/19 08:40 Vital Signs Reviewed: Yes Eye Exam: Normal Eyes: Positive: Conjunctiva Clear ENT: Positive: Pharyngeal erythema, Nasal congestion, TMs normal Neck: Positive: Supple Respiratory: Positive: Other: - Mild respiratory distress at rest upon initial presentation. Poor air movement bilaterally. No rhonchi appreciated. Cardiovascular: Positive: Tachycardia Musculoskeletal: Positive: Strength Intact, ROM Intact Neurological: Positive: Alert Psychological: Positive: Age Appropriate Behavior Skin Exam: Normal Respiratory Course/Dx - Course Course Of Treatment: Support Merchandiser: Rupal Mcnulty S, ([id number]) Dental Laboratory Technician: YVON, ([email or web address]) Report Date: 06/21/2019 09:24:00 Report Status: Final Start of Report Content Patient Name: JAROCHO CHEW Medical Record#: [id number] Ordering Physician: Eyal Suarez MD Acct.#: [id number] : 1960 Age : 58 Sex: F Location: [facility] Exam Date: 06/21/19843 ADM Status : REG ER Order Information: CHEST PA LAT 2 VWS Accession Number: [id number] CPT : 96576 Indication: Cough, congestion. 2 views the chest including dual energy PA views demonstrate no mediastinal shift. Heart is of normal size and configuration. Lung rojas appear hyperinflated. No evidence of alveolar consolidation is noted. Overall no changes noted since 518. IMPRESSION: Hyperinflated lung rojas without definite pneumonia. <Electronically signed by Rupal Mcnulty MD in OV> 06/21/19920 Dictated By: Rupal Mcnulty MD Dictated Date/Time: 06/21/19915 Transcribed Date/Time: 06/21/19915 Copy to: CC:Jeanette Ozuna MD; Eyal Suarez MD Imaging - [facility] Imaging - [facility] Imaging - [facility] [id number] [place] [id number] [place] [address] ph [phone] ph [phone]) ph ([phone]) End of Report Content Patient received a DuoNeb in clinic and 60 mg by mouth prednisone. Is also placed on 2 L of oxygen via nasal cannula. Which and shortness of breath is lessened with these treatments. I discussed the x-rays with the patient and her . We'll treat with Z-Chacho prednisone 40 no times a day for the next 4 days. She can continue her nebulizers at home. With her oxygen level being 89% on room air when she first arrived is a consideration of possible need for home oxygen. Nursing was able to make contact with the primary care physician office and they asked to see her today at 11 AM. Patient discharged here to go directly to her primary care physician's office. Patient is tachycardic and hypoxic and we discussed further treatment in the emergency department which the patient declined. I let her know that if she did not improve or worsen she needed to go the emergency department. - Differential Dx/Diagnosis Provider Diagnosis: COPD exacerbation, Bronchitis, Hypoxia Discharge ED - Sign-Out/Discharge Documenting (check all that apply): Patient Departure All imaging exams completed and their final reports reviewed: Yes - Discharge Plan Condition: Stable Disposition: HOME Prescriptions: Azithromyxin CHACHO (NF) [Z-Chacho (Zithromax) 250 mg tabs #6] 2 tab PO .TODAY, THEN 1 DAILY #6 tab predniSONE TAB* [Deltasone 20 MG TAB*] 40 mg PO DAILY #8 tab Patient Education Materials: Acute Bronchitis (ED), COPD (Chronic Obstructive Pulmonary Disease) (ED), Hypoxia (ED) Referrals: Jeanette Ozuna MD [Primary Care Provider] - Additional Instructions: FOLLOW UP WITH YOUR DOCTOR TODAY AT 11AM. GO TO THE EMERGENCY DEPARTMENT IF NOT IMPROVING OR WORSE OR ANY QUESTIONS OR CONCERNS. - Billing Disposition and Condition Condition: STABLE Disposition: Home
[2019-06-21 10:29] VITALS: BP 146/78
== END 2019-06-21 10:38 | disposition home or self-care (01) ==
LOC: UCCORT 08:29
DX: J44.1 Chronic obstructive pulmonary disease with (acute) exacerbation (principal); J20.9 Acute bronchitis, unspecified; R09.02 Hypoxemia; R09.81 Nasal congestion; J34.89 Other specified disorders of nose and nasal sinuses; R91.8 Other nonspecific abnormal finding of lung field; F17.210 Nicotine dependence, cigarettes, uncomplicated
CPT/HCPCS: 71046; 99213; A9270-GY; G0463; J7512